=== PATIENT | male | born 1990 | race Caucasian/White ===

== ENCOUNTER 2019-12-14 21:22 | Emergency (ER) | payer BC, OTHER ==
[2019-12-14] MEDS ORDERED: FLU Vacc QS2019-20(6MOS+)/PF 60 MCG/0.5 ML SYRINGE IM ONE (22:00)
[2019-12-14] MEDS ORDERED: Amoxicillin/Clavulanate K 875-125 MG Tab PO STA (22:04)
--- NOTE | 2019-12-14 22:04 | EDM.PDOC ---
ED HPI GENERAL MEDICAL PROBLEM - General Chief Complaint: Bite:Animal, Insect Stated Complaint: DOG BITE Time Seen by Provider: 12/14/19 21:35 Source of Information: Reports: Patient History Limitations: Reports: No Limitations - History of Present Illness INITIAL COMMENTS - FREE TEXT/NARRATIVE: Mr. Tucker is a very pleasant 29-year-old man with no chronic medical issues , who states that he was bitten on his left forearm by his own dog around 21:00 this evening. He states that she just got excited. He presents with a bleeding puncture wound to his distal left forearm, plus a small puncture wound that is not bleeding, plus a tiny scratch that did not puncture the surface on the volar aspect of his forearm. He reports that his whole hand was tingling, and his third finger was numb, however, he states that those symptoms are improving. He states that his last tetanus vaccination was less than 10 years ago. The patient does not have a PCP. He did not receive an influenza vaccine this season, but agreed to receive one here today. Left Lower Arm Pain Score (Numeric/FACES): 7 - Related Data Allergies Allergy/AdvReac Type Severity Reaction Status Date / Time Penicillins AdvReac Nausea Verified 12/14/19 21:33 Sulfa (Sulfonamide AdvReac Nausea Verified 12/14/19 21:33 Antibiotics) Home Meds: Home Meds Acetaminophen/HYDROcodone [[place] 325-5 MG] 1 - 2 tab PO Q6H PRN #20 tablet 12/14 [Rx] Amoxicillin/Potassium Clav [Augmentin 875-125 Tablet] 1 tab PO Q12H #10 tablet 12/14/19 [Rx] Past Medical History - Past Surgical History HEENT Surgical History: Reports: Eye Surgery (Left strabismus), Oral Surgery ( wisdom teeth extraction), Tonsillectomy Social & Family History - Tobacco Use Smoking Status *Q: Never Smoker - Caffeine Use Caffeine Use: Reports: Energy Drinks - Alcohol Use Alcohol Use History: Yes Alcohol Use Frequency: Socially - Recreational Drug Use Recreational Drug Use: No - Living Situation & Occupation Living situation: Reports: Single, Other (Friends) Occupation: Employed (Maintenance) ED ROS GENERAL - Review of Systems Review Of Systems: Comprehensive ROS is negative, except as noted in HPI. ED EXAM, ANIMAL BITE - Physical Exam Exam: See Below Exam Limited By: No Limitations General Appearance: Alert, WD/WN, No Apparent Distress Extremities: Other (On the patient's distal left forearm, there is a slowly bleeding puncture wound over his distal radius, plus a smaller puncture just distal to that that is not bleeding. There is an additional tiny scratch over the volar distal forearm that does not break the surface of the skin. The patient reports resolving tingling to his left hand and numbness to his left third finger. Vascular status of his left upper extremity is intact.) Course - Vital Signs Last Recorded V/S: Last Vital Signs Temp 36.1 C 12/14/19 21: Pulse 70 12/14/19 21:29 Resp 16 12/14/19 21: BP 142/63 H 12/14/19 21: Pulse Ox 100 12/14/19 21: - Orders/Labs/Meds Orders: Active Orders 24 hr Category Date Time Status Influenza Vaccine Charge [RC] .DISCHARGE Care 12/14/19 21:55 Active Meds: Medications Discontinued Medications Generic Name Dose Route Start Last Admin Trade Name Jani PRN Reason Stop Dose Admin Hydrocodone Bitart/Acetaminophen 2 tab 12/14/19 22:05 12/14/19 22:33 [place] 325-5 Mg PO 12/14/19 22:06 2 tab ONETIME STA Administration Amoxicillin/Clavulanate Potassium 1 tab 12/14/19 22:04 12/14/19 22:33 Augmentin 875 Mg/125 Mg PO 12/14/19 22:05 1 tab ONETIME STA Administration Influenza Virus Vaccine 1 each 12/14/19 21:55 Pharmacy To Dose - Influenza Vaccine IM 12/14/19 21:56 ONETIME ONE Influenza Virus Vaccine 60 mcg 12/14/19 22:00 12/14/19 22:33 Fluzone Quad 6231-1150 Syringe IM 12/14/19 22:01 60 mcg .ONCE ONE Administration - Re-Assessments/Exams Free Text/Narrative Re-Assessment/Exam: 12/14/19 21:55 As above, the patient has 1 larger and 1 extremely small puncture wound over his distal left radius, plus a tiny scratch that did not break the skin over his volar distal forearm. The larger puncture wound is still bleeding a bit. I explained to the patient that we do not like to suture puncture wounds, but that it will eventually stop bleeding. All the patient needs to do is keep it clean and change the dressing as needed. I would prefer, however, to start the patient on a phylactic antibiotic to cover anaerobes, and prescribe him some pain medication that he can take in addition to [id number] ibuprofen. The patient is agreeable. We will get him the prescriptions via [facility] and some extra gauze and dressings. 12/14/19 22:05 I spoke to a financial representative from [employer], and, unfortunately, it is not possible to write prescriptions for [facility] at this time. A VPN will need to be established for this computer, which is not possible at this time of the night. I will therefore have the patient receive his first dose of Augmentin here in the ED, and we will give him 2 tablets of [place] to take once he gets home. I will write prescriptions for Augmentin and [place] that the patient can fill at the pharmacy of his choice. Departure - Departure Time of Disposition: 21:57 Disposition: Home, Self-Care 01 Condition: Good Clinical Impression: Dog bite of left arm - Discharge Information *PRESCRIPTION DRUG MONITORING PROGRAM REVIEWED*: Not Applicable *COPY OF PRESCRIPTION DRUG MONITORING REPORT IN PATIENT GO: Not Applicable Prescriptions: Acetaminophen/HYDROcodone [[place] 325-5 MG] 1 - 2 tab PO Q6H PRN #20 tablet PRN Reason: Pain (Severe 7-10) Amoxicillin/Potassium Clav [Augmentin 875-125 Tablet] 1 tab PO Q12H #10 tablet Instructions: Animal Bite, Adult, [id number] Referrals: PCP,None [Primary Care Provider] - Forms: ED Department Discharge Additional Instructions: You were seen in the emergency room after being bitten on your left forearm by your dog. As discussed, puncture wounds and such as yours are not sutured closed. Keep the wound clean with ordinary soap and water least once a day, and dress with a clean dressing as often as necessary depending on how much the wound bleeds. You have been started on the antibiotic Augmentin. A prescription for Augmentin has been provided to you. Take 1 tablet of Augmentin every 12 hours, starting tomorrow morning, 12/15/2019, as prescribed. Finish the entire prescription unless told otherwise by a doctor. We recommend that you take [id number] ibuprofen, 2 to 3 tablets (400-600 mg) 3 8 hours, with food, as needed for discomfort. You have been started on the pain reliever [place]. A prescription for [place] has been provided to you. You may take 1 to 2 tablets of [place] up to every 6 hours , as needed for pain not relieved by ibuprofen. If you take [place], do not drive or operate heavy machinery for 12 hours afterwards. [place] may cause constipation, so consider taking a stool softener. If you follow these instructions, it is highly unlikely that the wound will get infection, but if there are any concerns, such as inordinate swelling, pain, or drainage, please return to the ER for reevaluation. Sepsis Event Note - Evaluation Sepsis Screening Result: No Definite Risk - Focused Exam Date Exam was Performed: 12/15/19 Time Exam was Performed: 10:09 - My Orders Last 24 Hours: My Active Orders 12/14/19 21:55 Influenza Vaccine Charge [RC] .DISCHARGE - Assessment/Plan Last 24 Hours: My Active Orders 12/14/19 21:55 Influenza Vaccine Charge [RC] .DISCHARGE
[2019-12-14] MEDS ORDERED: Acetaminophen/HYDROcodone 325-5 MG Tab PO STA (22:05)
== END 2019-12-14 22:44 | disposition home or self-care (01) ==
LOC: JD.ED 21:22
DX: S51.852A Open bite of left forearm, initial encounter (principal); Z23 Encounter for immunization; Z88.2 Allergy status to sulfonamides; Z88.0 Allergy status to penicillin; W54.0XXA Bitten by dog, initial encounter
CPT/HCPCS: 90471; 90686; 99283; A9270; G0008